=== PATIENT | female | born 1955 | race Caucasian/White ===

== ENCOUNTER 2016-06-15 23:49 | Emergency (ER) | payer OTHER ==
[~2016-06-15] VITALS: Ht 144.8 cm; Wt 68.0 kg
[~2016-06-15 23:49] MED LIST: ADVAIR HFA120 INHALA IH; ALBUTEROL2.5 MG/3 M IH; ALEVE220 MG PO; AMOX TR-K CLV1 EAC4 PO; AMOXICILLIN500 MG PO; ASPIR 8181 M1 PO; ASPIR-LOW81 MG PO; CALCIUM 500 MG1 EACH PO; CARVEDILOL6.25 MG PO; COMBIVENT RESPIM4 GM IH; COREG6.25 M1 PO; COUGH MED W/CODEINE; DELTASONE20 M1 PO; DOXYCYCLINE HY100 MG PO; DUONEB 2.5-0.5 M3 ML IH; HABITROL,NICODE21 MG TD; HYDROCHLOROTHIAZIDE PO; LEVOFLOXACIN750 MG PO; LISINOPRIL PO; LISINOPRIL-HCT1 EAC3 PO; LISINOPRIL10 MG PO; Lopressor PO; PLAVIX75 MG PO; PRAVASTATIN SOD40 MG PO; PREDNISONE10 MG PO; PREDNISONE20 MG PO; PRINIVIL5 MG PO; PROAIR HFA8.5 GM IH; SPIRIVA RESPIMAT4 GM IH; SPIRIVA1 INHALATI IH; VENTOLIN HFA18 GM IH; Zocor PO
[2016-06-16] MEDS ORDERED: PERCOCET 5/31 TABLET PO (01:32)
[2016-06-16] MEDS ORDERED: MOBIC15 MG PO (01:32)
[2016-06-16 02:31] VITALS: BP 100/49
== END 2016-06-16 02:33 | disposition home or self-care (01) ==
LOC: EME 23:49
DX: M25.561 Pain in right knee (principal); I10 Essential (primary) hypertension; I25.2 Old myocardial infarction; W10.9XXA Fall (on) (from) unspecified stairs and steps, initial encounter; Z88.8 Allergy status to other drugs, medicaments and biological substances
CPT/HCPCS: 73564; 99281; 99284

== ENCOUNTER → 2016-11-30 | Outpatient (CLI) | payer OTHER ==
[~2016-11-30] MED LIST changes: +MOBIC15 MG PO; +PERCOCET 5/31 TABLET PO
== END | disposition home or self-care (01) ==
LOC: RES 08:45
DX: Z02.71 Encounter for disability determination (principal)
CPT/HCPCS: 94060; 94729; 94760